=== PATIENT | male | born 1950 | race Caucasian/White ===

== ENCOUNTER 2020-07-20 09:03 | Inpatient (IN) | payer MEDICARE ==
[~2020-07-20] VITALS: Ht 190.5 cm; Wt 94.3 kg
[~2020-07-20 09:03] MED LIST: ALBU90OI6 INH; LORTAB 10 MG-3473 ML PO; Prednisone20 MG PO; Zithromax250 MG PO
[2020-07-20 09:45] LABS: BASOPHILS ABSOLUTE AUTO 0.07 K/mm3 (0.00-0.23); BASOPHILS PERCENT AUTO 1 % (0-2); EOSINOPHILS PERCENT AUTO 0 % (0-6); Hematocrit 50.6 % (37.0-53.0); Hemoglobin 16.9 g/dL (13.5-17.5); IMMATURE GRAN ABSOLUTE AUTO 0.06 K/mm3 (0.00-0.10); IMMATURE GRAN PERCENT AUTO 1 % (0-1); LYMPHOCYTES ABSOLUTE AUTO 1.52 K/mm3 (0.84-5.20); LYMPHOCYTES PERCENT AUTO 17 % (21-46); MONOCYTES ABSOLUTE AUTO 0.78 K/mm3 (0.16-1.47); MONOCYTES PERCENT AUTO 9 % (4-13); Mean Corpuscular HGB 29.8 pg (26.0-34.0); Mean Corpuscular HGB Conc 33.4 g/dL (31.5-36.5); Mean Corpuscular Volume 89 fL (80-100); Mean Platelet Volume 9.1 fL (9.1-12.4); NEUTROPHILS ABSOLUTE AUTO 6.73 K/mm3 (1.96-9.15); NEUTROPHILS PERCENT AUTO 73 % (41-73); Platelet Count 332 K/mm3 (150-400); RDW Coefficient Variation 12.8 % (11.7-14.2); RDW Standard Deviation 42.2 fL (35.1-46.3); Red Blood Cell Count 5.68 M/mm3 (4.30-5.90); White Blood Cell Count 9.16 K/mm3 (4.00-11.30)
[2020-07-20 09:55] LABS: PCO2 Arterial 15 mmHg (35-45); PO2 Arterial 138 mmHg (80-100); pH Blood Arterial 7.64 (7.35-7.45)
[2020-07-20 09:55] LABS: Alanine Aminotransfer (ALT/SGP 20 U/L (12-78); Albumin/Globulin Ratio 0.8 (0.8-1.8); Alk Phos 86 U/L (50-136); Anion Gap 7 mmol/L (6-16); Aspartate Aminotrans (AST/SGOT 18 U/L (12-37); Bilirubin, Total 0.4 mg/dL (0.1-1.0); Blood Urea Nitrogen 30 mg/dL (8-24); Bun/Creatinine Ratio 18.1 (12.0-20.0); CO2, Blood 24 mmol/L (21-32); Calcium, Blood 8.7 mg/dL (8.5-10.1); Chloride, Blood 104 mmol/L (98-108); Creatinine, Blood 1.66 mg/dL (0.60-1.20); Glomerular Filtration Rate 44 (60-); Glucose, Blood 124 mg/dL (70-99); Sodium, Blood 135 mmol/L (136-145); Troponin I <0.015 ng/mL (0.000-0.040)
[2020-07-20 15:10] LABS: Base Excess Venous -4.7 mmol/L; PCO2 Venous 34.5 mmHg (38-42); PO2 Venous 55.7 mmHg (38-42); pH Blood Venous 7.38 (7.34-7.37)
[2020-07-20 17:41] LABS: Source, Urine Clean Catch
[2020-07-20 17:53] LABS: Appearance, Urine Hazy (Clear); Blood, Urine 1+ (Neg); Color, Urine Amber (P-Yellow); Glucose Qualitative, Urine Neg (Neg); Ketones, Urine 1+ (Neg); Leukocyte Esterase, Urine 1+ (Neg); Nitrite, Urine Neg (Neg); Protein, Urine 3+ (Neg); Specific Gravity, Urine 1.025 (1.003-1.022); Urobilinogen, Urine 1+ (Normal)
--- NOTE | 2020-07-20 18:01 | NUR ---
PT ARRIVED IN THE UNIT VIA STRETCHER FROM [facility], PT WAS ABLE TO STAND TRANSFER TO PCU BED, REPORT RECEIVED FROM FRANCISCO QUICK. PT IS ALERT AND ORIENTED AT BASELINE, SBA FRO TRANSFERS VITALS HRR NSR WITH PVCS AT 100'S, BP SYSTOLIC 120'S, SATS ABOVE 95% ON 2L OF O2, AIRVO ON STANDBY, AFEBRILE. FIRST DOSE OF REMDESIVIR GIVEN TODAY, NS RUNNING AT 100 MLS/HR. PT SEEMS ANXIOUS AT TIEMS, MILD SOB WITH EXERTION NOTED. NO OTHER ISSUES REPORTED AT THIS TIME, PT ABLE TO MAKE NEEDS KNOWN, CALLS APPROPRIATELY, WILL MONITOR
[2020-07-20 18:22] LABS: Bilirubin, Urine 1+ (Neg)
[2020-07-20 18:24] LABS: Mucus Heavy (0-Heavy)
[2020-07-20 18:25] LABS: Amorphous Mod (0-Heavy); Bacteria Few /hpf; Squamous Epithelial Cells Many /hpf (Few)
[2020-07-21 04:13] LABS: BASOPHILS ABSOLUTE AUTO 0.02 K/mm3 (0.00-0.23); BASOPHILS PERCENT AUTO 0 % (0-2); EOSINOPHILS PERCENT AUTO 0 % (0-6); Hematocrit 44.3 % (37.0-53.0); Hemoglobin 14.9 g/dL (13.5-17.5); IMMATURE GRAN ABSOLUTE AUTO 0.07 K/mm3 (0.00-0.10); IMMATURE GRAN PERCENT AUTO 1 % (0-1); LYMPHOCYTES ABSOLUTE AUTO 1.22 K/mm3 (0.84-5.20); LYMPHOCYTES PERCENT AUTO 12 % (21-46); MONOCYTES PERCENT AUTO 7 % (4-13); Mean Corpuscular HGB Conc 33.6 g/dL (31.5-36.5); Mean Corpuscular Volume 89 fL (80-100); Mean Platelet Volume 9.5 fL (9.1-12.4); NEUTROPHILS ABSOLUTE AUTO 8.62 K/mm3 (1.96-9.15); NEUTROPHILS PERCENT AUTO 81 % (41-73); Platelet Count 246 K/mm3 (150-400); RDW Standard Deviation 42.5 fL (35.1-46.3); Red Blood Cell Count 4.97 M/mm3 (4.30-5.90); White Blood Cell Count 10.63 K/mm3 (4.00-11.30)
[2020-07-21 04:19] LABS: Albumin, Blood 2.4 g/dL (3.4-5.0); Albumin/Globulin Ratio 0.8 (0.8-1.8); Bilirubin, Total 0.3 mg/dL (0.1-1.0); Bun/Creatinine Ratio 26.7 (12.0-20.0); Calcium, Blood 7.7 mg/dL (8.5-10.1); Creatinine, Blood 1.8 mg/dL (0.60-1.20); Globulin, Blood 3.2 g/dL (2.2-4.0); Potassium, Blood 5.1 mmol/L (3.5-5.5); Total Protein, Blood 5.6 g/dL (6.4-8.2)
--- NOTE | 2020-07-21 05:40 | NUR ---
SHIFT SUMMARY PATIENT PLEASENT AND COOPERATIVE THROUGHOUT THE NIGHT. PATIENT HAS APPEARED TO SLEEP WELL THROUGHOUT MOST OF THE NIGHT. PATIENT ABLE TO BE TITRATED OFF OF OXYGEN AND IS NOW ON ROOM AIR AND IS MAINTAINING O2 SATURATION GREATER THAN 92%. PATIENT CURRENTLY APPEARS TO BE SLEEPING. WILL CONTINUE CURRENT PLAN OF CARE AND REPORT TO ONCOMING RN.
--- NOTE | 2020-07-21 11:25 | NUR ---
Spiritual care visit conducted. Patient is sitting up in bed and alert. Patient tells me about the symptoms that led to his hospitalization and the plan of care moving forward. 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 I listen empathically and provide pastoral legal counsel and prayer. Patient responds well and shows signs of being encouraged in his [employer] jacque. I will continue to remain available to patient and family.
--- NOTE | 2020-07-21 13:49 | NUR ---
REPORT GIVEN REPORT GIVEN TO ROBIN Givens RN. PT TO BE TRANSPORTED BY WHEELCHAIR TO ROOM 309 BY ACCOUNT PROCESSOR WITH BELONGINGS.
--- NOTE | 2020-07-21 14:58 | NUR ---
PT ARRIVAL TO MEDICAL PT ARRIVED TO MEDICAL UNIT AT APPROXIMATELY 1500. PT IS AOX4 AND ON RA. PT ARRIVED VIA WHEELCHAIR. PT IS IN ROOM, CALL LIGHT IN REACH, BED IN LOW POSITION. ENHANCED ISOLATION PRECAUTIONS MAINTAINED AND ROOM DOOR IS SHUT.
--- NOTE | 2020-07-21 15:12 | NUR ---
PT TRANSPORTED PT TRANSPORTED TO ROOM 309 VIA WHEELCHAIR BY THIS RN WITH ALL BELONGINGS AND CHART. REPORT GIVEN TO ABDELRAHMAN KELLY PRIOR TO TRANSPORT.
--- NOTE | 2020-07-21 19:14 | NUR ---
SHIFT SUMMARY PT IS AOX4. PT DENIES N/V, SOB,PAIN. PT IS INDEPENDENT IN ROOM. PT TRANSFERRED TO UNIT AT 1500. PT HAD AN ECHO AND XRAY DONE TODAY. PT DID NOT HAVE VISITORS. PT HAS A GOOD APPETITE. PT IS IN ROOM, CALL LIGHT IN REACH, BED IN LOW POSITION.
--- NOTE | 2020-07-22 04:44 | NUR ---
SHIFT SUMMARY PATIENT HAD NO ACUTE CHANGES OBSERVED. AXOX 4 AND INDEPENDENT IN ROOM. ON ROOM AIR. DROPLET PRECAUTIONS: COVID 19+. VSS/AFEBRILE. DENIES PAIN, SOB, AND N/V. PIVS REMAIN INTACT. TAKES MEDICATION WHOLE WITH WATER. COOPERATIVE WITH CARE. CALL LIGHT IN REACH. BED IN LOWEST POSITION. WILL CONTINUE TO MONITOR UNTIL DAY SHIFT NURSE ASSUMES CARE.
[2020-07-22 04:56] LABS: Hematocrit 41.4 % (37.0-53.0); Hemoglobin 13.5 g/dL (13.5-17.5); Mean Corpuscular HGB 29.9 pg (26.0-34.0); Mean Corpuscular HGB Conc 32.6 g/dL (31.5-36.5); Mean Corpuscular Volume 92 fL (80-100); Mean Platelet Volume 9.4 fL (9.1-12.4); Platelet Count 258 K/mm3 (150-400); RDW Coefficient Variation 13.1 % (11.7-14.2); RDW Standard Deviation 44.1 fL (35.1-46.3); Red Blood Cell Count 4.52 M/mm3 (4.30-5.90); White Blood Cell Count 10.53 K/mm3 (4.00-11.30)
[2020-07-22 05:16] LABS: Anion Gap 5 mmol/L (6-16); Blood Urea Nitrogen 50 mg/dL (8-24); Bun/Creatinine Ratio 40.3 (12.0-20.0); CO2, Blood 26 mmol/L (21-32); Calcium, Blood 8.3 mg/dL (8.5-10.1); Chloride, Blood 105 mmol/L (98-108); Creatinine, Blood 1.24 mg/dL (0.60-1.20); Glomerular Filtration Rate >60 (60-); Glucose, Blood 101 mg/dL (70-99); Potassium, Blood 4.8 mmol/L (3.5-5.5); Sodium, Blood 136 mmol/L (136-145)
--- NOTE | 2020-07-23 05:48 | NUR ---
SHIFT SUMMARY- PT. A&OX4, INDEPENDENT IN ROOM. COVID POS, ON RA WITH OCCASIONAL HACKING PRODUCTIVE COUGH. HAD NO COMPLAINTS DURING THE NIGHT. RESTED QUIETLY IN BED T/O THE NIGHT, NO APPARENT DISTRESS NOTED. VSS. CALL LIGHT WITHIN REACH AND SIDE RAILS UPX2. WILL CONT TO MONITOR.
--- NOTE | 2020-07-23 17:15 | NUR ---
SHIFT SUMMARY- PT IS A/O, PLESANT AND COOPERATIVE. HE IS EATING AND DRINKING WELL. HE IS INDEPENDENT IN THE ROOM. HE RECIEVED HIS AFTERNOON DOSE OF REMDISIVER AND WILL RECIEVE ONE MORE TOMORROW. HIS BED IS IN THE LOW POSITION AND CALL LIGHT IS WITHIN REACH.
--- NOTE | 2020-07-24 04:58 | NUR ---
SHIFT SUMMARY- NO ACUTE EVENTS OVERNIGHT. PT. RESTED QUIETLY T/O THE NIGHT, NO APPARENT DISTRESS NOTED. NO COMPLAINTS OF SOB, PAIN OR DISCOMFORT. PT. INDEPENDENT IN ROOM. ANTICIPATING DC TODAY, VSS. CALL LIGHT WITHIN REACH AND SIDE RAILS UPX2. WILL CONT TO MONITOR.
[2020-07-24] MEDS ORDERED: DECADRON6 M1 PO (10:18)
[2020-07-24] MEDS ORDERED: XARELTO10 M1 PO (10:19)
[2020-07-24] MEDS ORDERED: VITAMIN D31000 UNI1 PO (10:20)
--- NOTE | 2020-07-24 12:41 | NUR ---
DISCHARGE SUMMARY PIV OUT, MEDS FAXED TO [facility]. PT AWARE TO GO THROUGH DRIVE THOUGH/PICKUP, NOT TO GO INSIDE STORE. EDUCATED ON SELF-ISIOLATION, PT IS AMMENABLE. PAPERWORK REVIEWED, NEW PT PAPERWORK GIVEN TO HIM TO MAKE [facility] APPT AND THEN ESTABLISH CARE WITH PCP.
== END 2020-07-24 13:08 | disposition home or self-care (01) | DRG 177 ==
LOC: ER 09:03 → PCU 11:12 → MEDS 07-21 14:49
PROVIDERS: Emergency Medicine; Internal Medicine; Nurse Practitioner Acute Care; ADMIT Internal Medicine
PROC: XW033E5 Introduction of Remdesivir Anti-infective into Peripheral Vein, Percutaneous Approach, New Technology Group 5 (ICD-10-PCS; principal; 2020-07-20)
PROC: 8E0ZXY6 Isolation (ICD-10-PCS; 2020-07-21)
DX: U07.1 COVID-19 (principal); J12.82 Pneumonia due to coronavirus disease 2019; J96.01 Acute respiratory failure with hypoxia; E87.3 Alkalosis; N17.9 Acute kidney failure, unspecified; E87.1 Hypo-osmolality and hyponatremia; J44.0 Chronic obstructive pulmonary disease with (acute) lower respiratory infection; N18.30 Chronic kidney disease, stage 3 unspecified; E86.0 Dehydration; F17.210 Nicotine dependence, cigarettes, uncomplicated
CPT/HCPCS: 36415; 36600; 71045; 76770; 80048; 80053; 81001; 82803; 83735; 84100; 84484; 85025; 85027; 93005; 93010; 94644; 94762; 96374; 96375; 99285-25; A9270; J1100; J1650; J7030

== ENCOUNTER 2021-06-13 12:09 | Emergency (ER) | payer MEDICARE ==
[~2021-06-13] VITALS: Ht 190.5 cm; Wt 106.6 kg
[~2021-06-13 12:09] MED LIST changes: +DECADRON6 M1 PO; +VITAMIN D31000 UNI1 PO; +XARELTO10 M1 PO
[2021-06-13 12:53] LABS: PCO2 Arterial 14.1 mmHg (35-45); PO2 Arterial 214 mmHg (80-100); pH Blood Arterial 7.41 (7.35-7.45)
[2021-06-13 13:14] LABS: Albumin, Blood 2.4 g/dL (3.4-5.0); Albumin/Globulin Ratio 0.7 (0.8-1.8); Bilirubin, Total 0.3 mg/dL (0.1-1.0); Calcium, Blood 8.2 mg/dL (8.5-10.1); Creatinine, Blood 2.09 mg/dL (0.60-1.20); Globulin, Blood 3.4 g/dL (2.2-4.0); Potassium, Blood 4.3 mmol/L (3.5-5.5); Total Protein, Blood 5.8 g/dL (6.4-8.2)
[2021-06-13 14:01] LABS: Hemoglobin 17.7 g/dL (13.5-17.5); Mean Corpuscular HGB 28.8 pg (26.0-34.0); Mean Corpuscular HGB Conc 28.5 g/dL (31.5-36.5); Mean Corpuscular Volume 101 fL (80-100); Mean Platelet Volume 9.4 fL (9.1-12.4); NRBC ABSOLUTE 0.02 K/mm3 (0.00-0.02); NRBC Auto 0.1 /100 WBC (0.0-0.2); Platelet Count 295 K/mm3 (150-400); RDW Coefficient Variation 14.3 % (11.7-14.2); RDW Standard Deviation 53.1 fL (35.1-46.3); Red Blood Cell Count 6.15 M/mm3 (4.30-5.90); White Blood Cell Count 25.04 K/mm3 (4.00-11.30)
[2021-06-13 15:17] LABS: BAND PERCENT MAN 9 % (0-8); BASOPHILS PERCENT MAN 0 % (0-2); EOSINOPHILS PERCENT MAN 0 % (0-6); LYMPHOCYTES % ATYPICAL MANUAL 2 % (0-0); LYMPHOCYTES ABSOLUTE MAN 1.75 K/mm3 (0.84-5.20); LYMPHOCYTES PERCENT MAN 5 % (21-46); MONOCYTES PERCENT MAN 2 % (4-13); MYELOCYTE ABSOLUTE MAN 0.25 K/mm3 (0.00-0.00); MYELOCYTE PERCENT MAN 1 % (0-0); NEUTROPHILS ABSOLUTE MAN 22.53 K/mm3 (1.96-9.15); SEG NEUTROPHILS PERCENT MAN 81 % (41-73); TOTAL CELLS COUNTED 100
--- NOTE | 2021-06-13 18:43 | NUR ---
Pt. is . Spiritual care was summoned by the nurse manager non profit to meet with TAISHA (friend). Met with TAISHA in ED consult room. Informed her of the pts. demise. TAISHA seemed blind-sided and expressed a cathartic response. Facilitated a life review. TAISHA declined wanting to see pt. TAISHA was not interested in hearing from the Pts. doctor. CATIAK uncertain about home, though I recommended [facility] in [place]. TAISHA declined any further spiritual care and left the ED.
== END 2021-06-13 20:06 ==
LOC: ER 12:09
PROVIDERS: Emergency Medicine
DX: U07.1 COVID-19 (principal); J96.00 Acute respiratory failure, unspecified whether with hypoxia or hypercapnia; N17.9 Acute kidney failure, unspecified; I46.9 Cardiac arrest, cause unspecified; I31.3 Pericardial effusion (noninflammatory); I95.9 Hypotension, unspecified; Z79.899 Other long term (current) drug therapy; Z87.891 Personal history of nicotine dependence
CPT/HCPCS: 31500; 36415; 36556; 36600; 51702; 71045; 71260; 74177; 80053; 82803; 83605; 83735; 84484; 85025; 85379; 87040; 92950; 93005; 93010; 93308; 96361; 96374; 96375; C1751; J0456; J0692; J1790; J2060; J2704; J3010; J3370; J7030; J7050; J7060; Q9967